=== PATIENT | male | born 2000 | race Caucasian/White ===

== ENCOUNTER 2021-03-24 14:08 | Outpatient (REF) | payer OTHER, SELFPAY | END 2021-03-24 14:09 | disposition home or self-care (01) | LOC: HO.LNP 14:08 | PROVIDERS: Visit Provider Nurse Practitioner Family | DX: Z20.822 Contact with and (suspected) exposure to COVID-19 (principal); H66.90 Otitis media, unspecified, unspecified ear | CPT/HCPCS: U0003; U0005 ==